=== PATIENT | male | born 1950 | race Hispanic/Latino ===

== ENCOUNTER 2018-04-20 19:29 | Observation (INO) | payer BC ==
[~2018-04-20 19:29] MED LIST: ISOVUE-370 76%-LOCM 1 ML ONE
[2018-04-20 20:23] LABS: #Eosinphils 0.1 thou/uL (0.0-0.7); #Lymphocytes 2.8 thou/uL (1.20-3.40); #Monocytes 1.4 thou/uL (0.11-0.59); #Neutrophils 11.9 thou/uL (1.40-6.50); %Basophils 0.2 % (0.0-1.0); %Eosinophils 0.7 % (0.0-10.0); %Lymphocytes 17.5 % (21.0-51.0); %Monocytes 8.7 % (0.0-10.0); Hemoglobin 13.4 g/dL (14.0-18.0); Mean Corpuscular HGB CONC 35.8 g/dL (32.0-36.0); Mean Corpuscular Hemoglobin 31.3 pg (27.0-31.0); Mean Corpuscular Volume 87.4 fL (78.0-98.0); Mean Platelet Volume 7.6 fL (7.4-10.4); Platelet Count 209 thou/uL (130-400); RBC Distribution Width 12.3 % (11.5-14.5); Red Blood Cell (RBC) Count 4.27 mill/uL (4.70-6.10); White Blood Cell (WBC) Count 16.3 thou/uL (4.8-10.8)
[2018-04-20 20:35] LABS: Bilirubin Negative (Negative); Blood, Urine Negative (Negative); Clarity CLEAR (Clear); Glucose, Urine (Dipstick) >=1000 mg/dL (Negative); Leukocyte Negative (Negative); Nitrite Negative (Negative); Protein, Urine (Dipstick) Negative (Neg-Trace); Specific Gravity, Urine 1.021 (1.002-1.036); Urobilinogen 0.2 mg/dL (0.2-1.0)
[2018-04-20 20:43] LABS: ALT (SGPT) 22 U/L (8-55); AST (SGOT) 17 U/L (5-34); Albumin 4.1 g/dL (3.4-4.8); Alkaline Phosphatase 147 U/L (40-150); Anion Gap 15 mmol/L (10-20); BUN (Urea Nitrogen) 25 mg/dL (8.4-25.7); Bilirubin, Total 0.9 mg/dL (0.2-1.2); Calc. Creatinine Clearance 0 mL/min (70-130); Calcium 9.2 mg/dL (7.8-10.44); Carbon Dioxide 22 mmol/L (23-31); Chloride 102 mmol/L (98-107); Estimated GFR-MDRD 77; Globulin 3.4 g/dL (2.4-3.5); Glucose 173 mg/dL (80-115); Protein, Total 7.5 g/dL (5.8-8.1); Sodium 135 mmol/L (136-145)
[2018-04-20] MEDS ORDERED: Morphine 4 MG/ML VIAL ONE (21:15)
--- NOTE | 2018-04-20 22:52 | CT ---
CT ABDOMEN WITH CONTRAST CT PELVIS WITH CONTRAST: DATE: 04/20/2018 TIME: 10:05 p.m. HISTORY: 67-year-old male with dysuria, rectal pain, and lower abdominal pain. COMPARISON: 02/10/2014 TECHNIQUE: IV injection of iodinated contrast media: Isovue. Oral contrast media: Not administered. FINDINGS: The prostate gland has heterogeneously slightly low attenuation, is enlarged (similar to prior CT), a nd indents the bladder base. The interface between the prostate and the bladder base is slightly jayden stinct on the current study. The urinary bladder is distended, more than on the previous CT. It has thin, normal black. There is a new finding of mild bilateral hydroureteronephrosis, probably due to the distended urinary bladder. The rectum is distended with stool, measuring approximately 7.7 x 7.7 cm in short axes, a s ignificant change since the previous CT. There is new finding of mild perirectal, presacral fat stran ding consistent with mild edema. Mural thickness of the distended rectum is approximately 3 mm, borde rline thickened. The junction between the sigmoid colon and rectum is narrow, and there is surrounding fat stranding. These are also new since the prior CT. Superior to that, there is moderate volume of stool throughou t the sigmoid, descending, and transverse colon. Cholecystectomy clips in the gallbladder fossa. Diffuse mild dilation of the biliary tree is due to t he status post cholecystectomy, similar to the previous CT. No solid or cystic hepatic lesion. Abdomi nal aorta, adrenals, pancreas, and spleen, are essentially normal. No small bowel dilation. No ascite s or pneumoperitoneum. IMPRESSION: 1. Evidence for fecal impaction of the rectum. Recommend clinical correlation to rule out the po ssibility of mild stercoral proctitis. 2. Narrowing of the junction between the rectum and sigmoid colon with surrounding fat stranding . This could represent proctitis, or stricture due to colon cancer. Colonoscopy or proctoscopy should be considered on an elective basis, after decompression of the rectum. 3. Mild bilateral hydroureteronephrosis due to distended urinary bladder. The urinary bladder di stention could be due to bladder outlet obstruction. 4. Enlarged prostate with low attenuation, raising the possibility of prostatitis. 5. Status post cholecystectomy. CHRISTINE Al POS: GABBY
[2018-04-21 02:34] VITALS: BMI 29.0
[2018-04-21] MEDS ORDERED: Morphine 4 MG/ML VIAL SLOW IVP PRN (02:44)
[2018-04-21] MEDS ORDERED: Ondansetron HCl/PF 4 MG/2 ML Vial IVP PRN (02:47)
[2018-04-21] MEDS ORDERED: Bisacodyl 5 MG TAB PO PRN (02:49)
[2018-04-21] MEDS ORDERED: Dicyclomine 10 MG CAP PO PRN (02:49)
[2018-04-21] MEDS ORDERED: Dextrose 50% Abboject 50 ML SYRINGE SLOW IVP PRN (03:03)
[2018-04-21] MEDS ORDERED: Dextrose 5% in Water 1,000 ML IV PRN (03:03)
[2018-04-21] MEDS: Acetaminophen 325 MG TAB PO PRN ×2 (03:35→18:31)
[2018-04-21] MEDS: Sodium Chloride 0.9% 1,000 ML IV SCH ×3 (03:36→23:34)
[2018-04-21 04:30] LABS: #Eosinphils 0.1 thou/uL (0.0-0.7); #Lymphocytes 1.8 thou/uL (1.20-3.40); #Monocytes 0.8 thou/uL (0.11-0.59); %Basophils 0.2 % (0.0-1.0); %Eosinophils 0.5 % (0.0-10.0); %Lymphocytes 18.6 % (21.0-51.0); %Monocytes 8.3 % (0.0-10.0); %Neutrophils 72.4 % (42.0-75.0); Hemoglobin 12.3 g/dL (14.0-18.0); Mean Corpuscular HGB CONC 36.3 g/dL (32.0-36.0); Mean Corpuscular Hemoglobin 31.7 pg (27.0-31.0); Mean Corpuscular Volume 87.3 fL (78.0-98.0); Mean Platelet Volume 7.9 fL (7.4-10.4); Platelet Count 183 thou/uL (130-400); RBC Distribution Width 12.3 % (11.5-14.5); Red Blood Cell (RBC) Count 3.87 mill/uL (4.70-6.10); White Blood Cell (WBC) Count 9.6 thou/uL (4.8-10.8)
[2018-04-21 04:41] LABS: Anion Gap 12 mmol/L (10-20); BUN (Urea Nitrogen) 20 mg/dL (8.4-25.7); Calc. Creatinine Clearance 102 mL/min (70-130); Calcium 8.4 mg/dL (7.8-10.44); Carbon Dioxide 20 mmol/L (23-31); Chloride 105 mmol/L (98-107); Estimated GFR-MDRD 90; Glucose 213 mg/dL (80-115); Potassium 3.6 mmol/L (3.5-5.1); Sodium 133 mmol/L (136-145)
--- NOTE | 2018-04-21 07:36 | HP ---
PRIMARY CARE PHYSICIAN: Dr. Stringer from [facility]. CODE STATUS: FULL CODE. TIME OF EVALUATION: 2:45 a.m. CHIEF COMPLAINT: "I cannot urinate or defecate." HISTORY OF PRESENT ILLNESS: This 67-year-old male patient with past medical history of diabetes, als o hypertension, came to the hospital after having 3 days of constipation and inability to urinate, sy mptoms have been severe, with severe pain, 10/10, no clear triggers, alleviating factors, patient rec eived Gonsales in ER and a large amount of urine was collected, CAT scan was done and showed possible pr octitis and also prostatitis. Physical exam done in the ER. The patient has severe pain during rect al examination. Possibilities for diagnosis were reported as a possible rectal stricture versus canc er. The patient had no fever or chills. REVIEW OF SYSTEMS: Constitutional: No fever or chills or generalized weakness. Respiratory: No co ugh, sputum production or shortness of breath. Cardiovascular: No chest pain, palpitation or shortn ess of breath. Gastrointestinal: No nausea, no vomiting. The patient has constipation and rectal p ain. 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 Genitourinary: The patient has urinary r etention, and lower abdominal pain. Extremities: No leg swelling. All other systems were reviewed and negative except for the findings mentioned above. PAST MEDICAL HISTORY: Positive for diabetes, hypertension as mentioned above, and hyperlipidemia. PAST SURGICAL HISTORY: Appendectomy, cholecystectomy. PSYCHIATRIC HISTORY: No previous psychiatric history. SOCIAL HISTORY: No alcohol, no smoking history. No drug use. FAMILY HISTORY: Noncontributory to current presentation. ALLERGIES: PENICILLIN. REPORTED MEDICATIONS: Atorvastatin, glipizide, Lyrica, duloxetine, dicyclomine. PHYSICAL EXAMINATION: VITAL SIGNS: On presentation, heart rate 62, respiratory rate was 21, oxygen saturation 99, temperat ure 97.5, blood pressure 125/74. GENERAL APPEARANCE: The patient is alert, oriented, not in any acute distress. HEAD AND EYES: Normal conjunctivae. Moist oral mucosa. Anicteric. NECK: No JVD. RESPIRATORY: Bilateral air entry. No rales or wheezing. Symmetric expansion. CARDIOVASCULAR: Normal rate, regular rhythm. No murmurs, no gallop. No edema. ABDOMEN: Soft, tender mostly lower abdomen and also in right flank and back. MUSCULOSKELETAL: Baseline range of motion and strength. No tenderness. SKIN: Warm and intact. No pallor, no rash, no redness. Peripheral pulses are present. Capillary r efill seems to be intact. NEUROLOGIC: Baseline sensorium. No evidence of any new focal weakness. Baseline speech. Cranial n erves seems to be intact. PSYCHIATRIC: The patient is in good mood. No anxiety, oriented, optimal judgment. DIAGNOSTIC DATA: CAT scan was done and review evidence of fecal impaction in the rectum. Recommende d clinical correlation to rule out the possibility of mild . Narrowing of the junction between the rectum and sigmoid colon with surrounding fat stranding. This could represent proctitis or stric ture due to colon cancer. Colonoscopy or proctoscopy to be considered on an elective basis after dec ompression of the rectum, mild bilateral hydroureteronephrosis due to distended urinary bladder. The urinary bladder distention could be due to bladder outlet obstruction, enlarged prostate with low at tenuation raising the possibility of prostatitis, status post cholecystectomy. LABORATORY DATA: Labs were reviewed. White count 16.3, hemoglobin 13.4, MCV 87, platelet count 209. Sodium 135, potassium 4.0, chloride 102, carbon dioxide 32, anion gap 15, BUN 25, creatinine 0.9, G FR 77, glucose 173. Lactic acid was 2.8. Initially a second was 1.0. Calcium 9.2. LFTs were cindy l. Urine was done and was negative for infection. There is some trace ketones and glucose in the ur ine. ASSESSMENT AND PLAN: The patient will be placed in the hospital with following medical problems. 1. Urinary tract obstruction or infected with prostatitis as reported in the CAT scan. We will cont inue antibiotics started in the ER, a Gonsales catheter was placed with significant amount of urine was drained, follow cultures, Urology consultation in the morning. 2. Fecal impaction reported in CAT scan with some possible rectal stricture versus proctitis. We wi ll need GI evaluation for any further need for procedures, now or electively. 3. Severe pain, patient receiving opiate medications for optimal control. Basically, the patient fisher d a recent complication from treatment. 4. Deep venous thrombosis prophylaxis. 5. Uncontrolled diabetes with blood sugar of 173, hyperglycemia, we will place the patient on slidin g scale for optimal control. 6. Lactic acidosis, on presentation 2.8, will be secondary to prostatitis or due to proctitis, the p atient already is on antibiotics, we will monitor and we will treat accordingly. 7. Hyponatremia with sodium 135. This is minimal, the patient, we will monitor, we will adjus t treatment as needed. 8. Leukocytosis with white count of 16.3, this could be likely secondary to underlying prostatitis v ersus proctitis, patient already on antibiotics. We will monitor.
[2018-04-21] MEDS ORDERED: Naproxen 500 MG TAB PO SCH (08:00)
[2018-04-21] MEDS ORDERED: Prevnar 13-Val Conj/PF 0.5 ML SYRINGE IM ONE (09:00)
[2018-04-21] MEDS: Pregabalin 75 MG CAP PO SCH ×2 (10:06→20:50)
[2018-04-21] MEDS: Atorvastatin Calcium 10 MG TAB PO SCH (10:06)
[2018-04-21] MEDS: DULoxetine 60 MG CAP PO SCH ×2 (10:06→20:50)
[2018-04-21] MEDS ORDERED: Bisacodyl 5 MG TAB PO SCH (11:00)
[2018-04-21 12:32] LABS: Hemoglobin A1c 9.3 % (4.0-6.0)
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
--- NOTE | 2018-04-21 15:44 | CON ---
DATE OF CONSULTATION: 04/21/2018 HISTORY OF PRESENT ILLNESS: The patient is a 67-year-old gentleman who presented with const ipation, unable to urinate and having some severe rectal pain. Patient underwent a colonoscopy at [facility] [place] approximately 2 years ago and it was normal. He reports he has not had good bowel move ment in 3 days. PAST MEDICAL HISTORY: Includes diabetes, hypertension, hyperlipidemia, diabetes mellitus. PAST SURGICAL HISTORY: Includes appendectomy, cholecystectomy. SOCIAL HISTORY: Does not smoke or drink. FAMILY HISTORY: Negative for GI or liver disease. ALLERGIES: PENICILLIN. HOME MEDICATIONS: Metformin 1000 mg p.o. b.i.d., glipizide 10 mg p.o. b.i.d., Lyrica 150 mg p.o. b.i .d., Actos 30 mg p.o. daily, Naprosyn 500 mg p.o. b.i.d., dicyclomine 10 mg p.o. t.i.d. p.r.n., desip ramine 50 mg p.o. at bedtime, Cymbalta 60 mg p.o. b.i.d., Dulcolax p.r.n., atorvastatin 10 mg p.o. q. a.m. REVIEW OF SYSTEMS: Constitutional: No fever or chills, no weight loss. Eyes: No blurred vision or double vision. ENT: No sore throat or earaches. Cardiovascular: No chest pain or palpitation. P ulmonary: No shortness of breath, cough, or wheezing. Gastrointestinal: See above. Genitourinary: No hematuria or dysuria. Musculoskeletal: No joint pain or muscle weakness. Skin: No rashes. N eurologic: No numbness or seizure activity. PHYSICAL EXAMINATION: GENERAL: Shows a well-developed, well-nourished male, in no acute distress. VITAL SIGNS: Temperature 97.7, pulse 59, respiratory rate 12, blood pressure 98/56. HEENT: Unremarkable. NECK: Supple. CHEST: Clear. CARDIOVASCULAR: Regular rate and rhythm. ABDOMEN: Soft, tender in the lower quadrant without rebound or guarding. Bowel sounds are present. RECTAL: Shows a large fecal impaction. Attempt at removing, whereas slightly successful; however, t he patient had significant pain and had to be stopped. Most of the impaction was broken up. EXTREMITIES: Normal. NEUROLOGIC: Nonfocal. LABORATORY: Shows a white blood cell count 9.6, hemoglobin 12.3, hematocrit 33.8. Sodium 133, CO2 o f 20, glucose 213. ASSESSMENT: 1. Fecal impaction. 2. Urinary retention secondary to fecal impaction. 3. Diabetes mellitus. RECOMMENDATIONS: 1. GoLYTELY prep. 2. Recheck rectal exam tomorrow and see if there is any further residual impaction.
[2018-04-21] MEDS: Insulin Regular 300 UNITS/3 ML VIAL SC PRN ×2 (17:11→22:10)
[2018-04-21] MEDS ORDERED: GoLYTELY 4,000 ml Bottle PO SCH (18:00)
[2018-04-21] MEDS ORDERED: DESIPRAMINE HCL 50 MG PO SCH (21:00)
[2018-04-22] MEDS: Insulin Regular 300 UNITS/3 ML VIAL SC PRN ×2 (05:38→12:14)
[2018-04-22] MEDS ORDERED: Dutasteride 0.5 MG CAP PO SCH (09:00)
[2018-04-22] MEDS ORDERED: Tamsulosin HCl 0.4 MG CAP PO SCH (09:00)
[2018-04-22] MEDS: Pregabalin 75 MG CAP PO SCH (09:30)
[2018-04-22] MEDS: DULoxetine 60 MG CAP PO SCH (09:30)
[2018-04-22] MEDS: Atorvastatin Calcium 10 MG TAB PO SCH (09:31)
--- NOTE | 2018-04-22 10:09 | PRG ---
DATE OF SERVICE: 04/22/2018 SUBJECTIVE: The patient feels much better, has his appetite back, has good bowel sounds. He had a large bowel movement, so large that per nursing staff, he clogged the hospital toilet. PHYSICAL EXAMINATION: VITAL SIGNS: Stable. He is afebrile. GENITOURINARY: Urine output is clear, 1525. Has had 4 bowel movements. ABDOMEN: Soft, nontender, nondistended. Digital rectal exam empty rectal vault LABORATORY DATA: Urine culture is negative. Hemoglobin A1c on this admission is 9.3. IMPRESSION AND PLAN: Mr. Otoole is a 67-year-old male with history of diabetes , poorly controlled, noncompliant with diet regimen, admitted for fecal impaction, urinary retention, post-void residual unknown; however, per ER staff , large amounts of residual obtained with initial Gonsales catheter placement. The patient does not have evidence of acute bacterial prostatitis, urinary retention is multifactorial, i.e., component of benign prostatic hyperplasia, likely component of myogenic component due to poorly controlled diabetes as well as significant fecal impaction. With bowel regimen provided by Dr. Dinh, he has had large bowel movements. I did repeat a digital rectal exam today, which demonstrates an empty rectal vault. The patient may be discharged when okay with primary service and GI. Strict control of his diabetes is advised. If the patient is discharged today, he will need to be discharged with an indwelling Gonsales catheter to a leg bag, please discharge with tamsulosin and Avodart. fui appt in chart for void trial As there was significant postvoid residual history, bladder rest with indwelling Gonsales catheter advised for a voiding trial at a later date. No antibiotics are necessary from perspective. MTDD
[2018-04-22 11:52] VITALS: BP 120/64; TEMP 98.2
[2018-04-22] MEDS: Sodium Chloride 0.9% 1,000 ML IV SCH (13:16)
--- NOTE | 2018-04-22 14:02 | PRG ---
DATE OF SERVICE: 04/22/2018 SUBJECTIVE: The patient had a large amount of stools after his GoLYTELY. Dr. Villalobos did a rect al exam and showed no residual stool. He is feeling good, eating well. OBJECTIVE: VITAL SIGNS: Temperature 98.2, pulse 55, respiratory rate 16, blood pressure 120/64. CHEST: Clear. CARDIOVASCULAR: Regular rate and rhythm. ABDOMEN: Benign. RECTAL: Not repeated. EXTREMITIES: Normal. LABORATORY DATA: Shows glucose 172. ASSESSMENT: Fecal impaction -- resolved. RECOMMENDATIONS: 1. Daily MiraLax long-term. 2. We will follow at a distance.
--- NOTE | 2018-04-22 18:49 | DIS ---
DATE OF ADMISSION: 04/20/2018 DATE OF DISCHARGE: 04/22/2018 DISCHARGE DIAGNOSES: 1. Urinary retention. 2. Severe constipation. 3. Abdominal pain. HOSPITAL COURSE: The patient is a 57-year-old male with history of diabetes and hypertension who pre sented to the hospital with complaints of severe lower abdominal pain and urinary retention. Patient at this time underwent a CT abdomen and pelvis, which indicated evidence of fecal impaction of the r ectum. Recommended clinical correlation. Also narrowing of the junction between the rectum and the sigmoid colon. Also had mild bilateral hydronephrosis. The patient at this time was put on IV antib iotics for possible prostatitis and Urology and GI was consulted. Patient had a Gonsales catheter place d. Urine culture was negative. The patient will follow up with Urology as outpatient for removal of the catheter. He was seen by GI, also underwent GoLYTELY and had a significant amount of bowel move ment. Patient currently feels stable and will follow up with PCP as outpatient. He recommended the patient to increase his fiber in his diet. HOME MEDICATIONS: He is going to go home with metformin 1000 b.i.d., glipizide 10 b.i.d., Lyrica 150 b.i.d., Actos 50 mg daily, desipramine 50 mg at bedtime, Cymbalta 60 mg b.i.d., atorvastatin 10 mg d aily, Flomax 0.4 daily, MiraLax 17 grams daily, and Avodart 5 mg daily. PHYSICAL EXAMINATION: VITAL SIGNS: 98.4, 53, 16, 95, 120/64. GENERAL: He is awake, alert, oriented x3, does not appear in any distress. CARDIOVASCULAR: S1, S2 present. No murmurs, rubs or gallops. ABDOMEN: Soft, nontender. Bowel sounds are present x2. EXTREMITIES: No edema. Pedal pulses are present x2. DISCHARGE INSTRUCTIONS: Patient will be discharged home. He will follow up with PCP and also with Gómez gibson as outpatient.
== END 2018-04-22 16:20 | disposition home or self-care (01) ==
LOC: ERS 19:29 → 2SW 23:57
PROVIDERS: ADMIT Hospitalist; ATTEND Hospitalist
DX: K56.41 Fecal impaction (principal); R33.8 Other retention of urine; E11.65 Type 2 diabetes mellitus with hyperglycemia; E78.5 Hyperlipidemia, unspecified; I10 Essential (primary) hypertension; E87.2 Acidosis; E87.1 Hypo-osmolality and hyponatremia; Z79.84 Long term (current) use of oral hypoglycemic drugs; Z79.899 Other long term (current) drug therapy; Z88.0 Allergy status to penicillin; Z91.11 Patient's noncompliance with dietary regimen
CPT/HCPCS: 36415; 36416; 51702; 74177; 80048; 80053; 81003; 83036; 83605; 83690; 85025; 87086; 90471; 90670; 96361; 96365; 96366; 96375; 96376; G0009; G0378; J1815; J1956; J2270

== ENCOUNTER 2018-12-26 | Outpatient (CLI) | payer BC, MEDICARE ==
[2018-12-26 10:10] LABS: #Basophils 0.1 thou/uL (0.0-0.2); #Eosinphils 0.1 thou/uL (0.0-0.7); #Lymphocytes 2.6 thou/uL (1.20-3.40); #Monocytes 0.6 thou/uL (0.11-0.59); #Neutrophils 3.8 thou/uL (1.40-6.50); %Basophils 1.4 % (0.0-1.0); %Eosinophils 1.3 % (0.0-10.0); %Monocytes 8.7 % (0.0-10.0); %Neutrophils 52.6 % (42.0-75.0); Hemoglobin 14.1 g/dL (14.0-18.0); Mean Corpuscular HGB CONC 34.6 g/dL (32.0-36.0); Mean Corpuscular Hemoglobin 30.8 pg (27.0-31.0); Mean Platelet Volume 8.4 fL (7.4-10.4); Platelet Count 199 thou/uL (130-400); RBC Distribution Width 12.4 % (11.5-14.5); Red Blood Cell (RBC) Count 4.57 mill/uL (4.70-6.10); White Blood Cell (WBC) Count 7.2 thou/uL (4.8-10.8)
[2018-12-26 10:16] LABS: Bacteria/HPF None Seen HPF (None Seen); Hyaline Casts/LPF NONE SEEN LPF (0-3 Hyaline); INR-International Normal Ratio 1.1; Prothrombin Time 13.8 SEC (12.0-14.7); RBC/HPF None Seen HPF (0-3); Squamous Epithelial 0-3 HPF (0-3); WBC/HPF None Seen HPF (0-3)
[2018-12-26 10:25] LABS: Anion Gap 13 mmol/L (10-20); BUN (Urea Nitrogen) 25 mg/dL (8.4-25.7); Calc. Creatinine Clearance 0 mL/min (70-130); Calcium 9.9 mg/dL (7.8-10.44); Carbon Dioxide 25 mmol/L (23-31); Chloride 104 mmol/L (98-107); Estimated GFR-MDRD 75; Glucose 224 mg/dL (80-115); Potassium 4.5 mmol/L (3.5-5.1); Sodium 137 mmol/L (136-145)
== END 2018-12-26 00:01 | disposition home or self-care (01) ==
LOC: LABBT
PROVIDERS: ATTEND Orthopaedic Surgery
DX: Z01.818 Encounter for other preprocedural examination (principal); M17.12 Unilateral primary osteoarthritis, left knee
CPT/HCPCS: 80048; 81015; 85025; 85610; 87081; 93005; 93010

== ENCOUNTER 2018-12-30 05:34 | Day surgery (SDC) | payer BC, MEDICARE ==
--- NOTE | 2018-12-26 08:31 | HP ---
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 He has had progressive pain despite rest, restriction of activities, anti-inflammatory medications, and cortisone injections. He has had no recent injury, but has had previous arthroscopic surgery of his right knee approximately 30 years ago. The pain is now interfering with day-to-day activities including walking, getting dressed, and sleeping. PAST MEDICAL HISTORY: The patient has history of hypertension, diabetes, hyperlipidemia, and enlarged prostate. CURRENT MEDICATIONS: Include; 1. Naproxen. 2. MiraLAX. 3. Cymbalta. 4. Glipizide. 5. Lipitor. 6. Metformin. 7. Actos. 8. Avodart. 9. Flomax. ALLERGIES: HE IS ALLERGIC TO PENICILLIN, WHICH CAUSES HIVES. FAMILY HISTORY: Otherwise, unremarkable. SOCIAL HISTORY: Otherwise, unremarkable. REVIEW OF SYSTEMS: Otherwise, unremarkable. PHYSICAL EXAMINATION: GENERAL: Reveals a healthy male. HEENT: Unremarkable. NECK: Supple. CHEST: Clear. HEART: Regular rate and rhythm. ABDOMEN: Soft and nontender. RECTAL: Deferred. GENITAL: Deferred. EXTREMITIES: Pertinent findings related to his knees, there is moderate varus deformity bilaterally, left slightly greater than right. On the right, there are healed arthroscopy puncture wounds. There is tenderness and crepitus over the medial joint line bilaterally, left greater than right. Range of motion is 5 to 95 degrees bilaterally. There is no instability. Neurovascular exam is intact. Distal pulses are 1+. IMAGING DATA: X-rays of both knees reveal [id number] collapse medially. IMPRESSION: 1. Degenerative arthritis of both knees, left symptomatic more than right. 2. History of hypertension. 3. History of diabetes. PLAN: Left total knee replacement. He may eventually require staged right total knee replacement. The nature of the surgery, length of recovery, and potential complications such as infection, loss of motion, incomplete relief, thromboembolic phenomena, delayed wound healing, possible transfusion, and need for revision have been discussed in detail. Job ID: [id number]
[2018-12-30] MEDS ORDERED: Vancomycin HCl 1.5 GM in Sodium Chloride 0.9% 250 ML 300 ML IVPB SCH ×2 (06:15→18:00)
[2018-12-30] MEDS ORDERED: Tranexamic Acid 1,000 MG/10 ML VIAL ONE ×2 (06:25→09:20)
[2018-12-30] MEDS ORDERED: Sodium Chloride 0.9% 100 ML ONE (06:25)
[2018-12-30] MEDS ORDERED: Levofloxacin 500 mg/D5W 100 ml Premix Bag ONE (06:25)
[2018-12-30] MEDS ORDERED: Midazolam HCl 2 mg/2 ml Vial ONE (06:31)
[2018-12-30] MEDS ORDERED: Fentanyl 100 MCG/2 ML VIAL ONE ×2 (06:31→07:50)
[2018-12-30] MEDS ORDERED: Lidocaine 1% (PF) 30 ML VIAL ONE (06:41)
[2018-12-30] MEDS ORDERED: traMADol HCl 50 MG TAB PO PRN ×3 (06:59→10:20)
[2018-12-30] MEDS ORDERED: Zolpidem Tartrate 5 MG TAB PO PRN ×2 (06:59→10:20)
[2018-12-30] MEDS ORDERED: Promethazine HCl 25 MG/ML VIAL IM PRN ×2 (06:59→09:07)
[2018-12-30] MEDS ORDERED: Ondansetron PF 4 MG/2 ML Vial IVP PRN ×2 (06:59→10:20)
[2018-12-30] MEDS ORDERED: HYDROcodone/Acetaminophen 10/325 mg Tablet PO PRN ×3 (06:59→10:20)
[2018-12-30] MEDS ORDERED: Fentanyl 100 MCG/2 ML VIAL IV PRN (07:00)
[2018-12-30] MEDS ORDERED: Ropivacaine HCl/PF 250 ML in Premix Bag 1 BAG NERVE BLCK SCH (07:01)
[2018-12-30] MEDS ORDERED: Bupivacaine/Epinephrine 0.25% 30 ML VIAL ONE (07:53)
[2018-12-30] MEDS ORDERED: Ropivacaine 0.2% HCl/PF (40 MG/20 ML VIAL) ONE (09:04)
[2018-12-30] MEDS ORDERED: Ropivacaine 0.5% HCl/PF (150 MG/30 ML VIAL) ONE (09:04)
[2018-12-30] MEDS ORDERED: Meperidine HCl/PF 25 MG/ML VIAL SLOW IVP PRN (09:07)
[2018-12-30] MEDS ORDERED: Promethazine HCl 25 MG/ML VIAL SLOW IVP PRN ×2 (09:07→10:20)
[2018-12-30] MEDS ORDERED: Ondansetron HCl/PF 4 MG/2 ML Vial IVP PRN (09:07)
[2018-12-30] MEDS ORDERED: Ketorolac Tromethamine 30 MG/ML VIAL IVP PRN (09:07)
[2018-12-30] MEDS ORDERED: Morphine Sulfate 2 MG/ML SYRINGE SLOW IVP PRN (09:07)
[2018-12-30] MEDS ORDERED: PACU-Morphine 4MG/ML VIAL SLOW IVP PRN (09:07)
[2018-12-30] MEDS ORDERED: HYDROmorphone 2 MG/ML VIAL SLOW IVP PRN (09:07)
[2018-12-30] MEDS ORDERED: ePHEDrine 50 MG/ML VIAL ONE (09:08)
[2018-12-30] MEDS ORDERED: PROPOFOL 200 MG/20 ML VIAL ONE (09:08)
[2018-12-30] MEDS ORDERED: Glycopyrrolate 0.2 MG/ML 5 ML SYRINGE ONE (09:08)
[2018-12-30] MEDS ORDERED: Lidocaine 1% PF 5 ML VIAL ONE (09:08)
[2018-12-30] MEDS ORDERED: Ondansetron PF 4 MG/2 ML Vial ONE (09:08)
[2018-12-30] MEDS ORDERED: Tranexamic Acid 1,000 MG in Sodium Chloride 0.9% 100 ML IVPB SCH ×2 (09:15→10:20)
--- NOTE | 2018-12-30 10:12 | RAD ---
LEFT KNEE TWO VIEWS: HISTORY: Recent total knee arthroplasty. FINDINGS/IMPRESSION: Recent total knee arthroplasty changes without evidence for dislocation or periprosthetic fracture. POS: TPC
[2018-12-30] MEDS ORDERED: Multivitamin W/ Minerals 1 TAB PO SCH ×2 (10:20→11:00)
[2018-12-30] MEDS ORDERED: Ferrous Gluconate 324 MG TAB PO SCH ×2 (10:20→11:00)
[2018-12-30] MEDS ORDERED: Aspirin 81 mg Enteric Coated Tablet PO SCH ×2 (10:20→11:00)
[2018-12-30] MEDS ORDERED: diphenhydrAMINE 25 MG CAP PO PRN (10:20)
[2018-12-30] MEDS ORDERED: Senokot S 8.6-50 MG TAB PO SCH ×2 (10:20→11:00)
[2018-12-30] MEDS ORDERED: Fentanyl 100 MCG/2 ML VIAL SLOW IVP PRN ×2 (10:20)
[2018-12-30] MEDS ORDERED: Acetaminophen 325 MG TAB PO PRN (10:20)
[2018-12-30] MEDS ORDERED: Dextrose 50% Abboject 50 ML SYRINGE SLOW IVP PRN (10:33)
[2018-12-30] MEDS ORDERED: Dextrose 5% in Water 1,000 ML IV PRN (10:33)
[2018-12-30 10:38] VITALS: BMI 31.3
[2018-12-30] MEDS ORDERED: Prevnar 13-Val Conj/PF 0.5 ML SYRINGE IM ONE (11:00)
[2018-12-30] MEDS: Sodium Chloride 0.9% 1,000 ML IV SCH ×2 (11:24→17:54)
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
[2018-12-30] MEDS: Ketorolac Tromethamine 30 MG/ML VIAL IVP SCH ×3 (12:00→23:10)
[2018-12-30] MEDS ORDERED: Ketorolac Tromethamine 30 MG/ML VIAL IVP SCH (12:00)
--- NOTE | 2018-12-30 16:14 | OP ---
DATE OF PROCEDURE: 12/30/2018 ORACLE ARCHITECT: Inga Epstein PA-C ANESTHESIA: General plus adductor canal and sciatic nerve blocks. PREOPERATIVE DIAGNOSIS: Degenerative arthritis, left knee. POSTOPERATIVE DIAGNOSIS: Degenerative arthritis, left knee. PROCEDURES PERFORMED: Left total knee replacement with computer-assisted navigation with cemented [place] triathlon components (#5 femoral component, #5 primary tibial base plate with 9 mm CS plastic insert, and all plastic A35 patellar component). DESCRIPTION OF PROCEDURE: After satisfactory anesthesia was induced in supine position, sequential compression device was placed on the nonoperative leg throughout the procedure. The left leg was then prepped and draped in routine sterile fashion. The left leg was elevated and exsanguinated with an Esmarch bandage and the tourniquet inflated to 250 mmHg. A gently curved medial parapatellar incision was made, carried down through the subcutaneous tissues and bleeding points controlled with Bovie cautery. Medial parapatellar arthrotomy was performed, and patella dislocated laterally. Portions of the fat pad were excised for exposure. There was marked degenerative arthritis of the knee of all compartments, especially medially with large areas of exposed bone. Meniscal remnants and osteophytes were removed. Using the [employer] LS15 pinless navigation system and the appropriate guides, the distal femoral and proximal tibial articular surfaces were excised with an oscillating saw to accept the trial components. It was felt that #5 femoral component, #5 tibial base plate with 9 mm CS plastic insert gave appropriate size, fit, stability, and correction of the preoperative deformity. The patellar articular surface was excised to accept an all plastic A35 patellar component. There was good range of motion and good patellar tracking. The trial components were removed. The knee was copiously irrigated with pulsatile lavage. The bony surfaces were thoroughly cleaned and dried. The permanent components were then cemented in a single stage using one package of cement premixed with 1 g of tobramycin powder. Excess cement was removed. There was again good fit and stability of the components. The knee was again copiously irrigated with pulsatile lavage. The medial retinaculum and quadriceps mechanism were closed with interrupted #2 Vicryl and a running #2 Quill. Subcutaneous tissues were closed with a running 0 Quill suture, and the skin closed with running subcuticular 3-0 Monoderm and SurgiSeal skin adhesive. A sterile bulky compressive dressing was applied. The tourniquet deflated after 79 minutes. The foot promptly pinked up, and sequential compression devices were applied to his operated leg. He was awakened, taken to recovery room in stable condition. There were no apparent intraoperative complications. The estimated blood loss was less than 100 mL. Job ID: [id number]
[2018-12-30] MEDS: HYDROcodone/Acetaminophen 10/325 mg Tablet PO PRN (18:01)
[2018-12-30] MEDS: Aspirin 81 mg Enteric Coated Tablet PO SCH (20:52)
[2018-12-30] MEDS: Ferrous Gluconate 324 MG TAB PO SCH (20:52)
[2018-12-30] MEDS: Senokot S 8.6-50 MG TAB PO SCH (20:53)
[2018-12-30] MEDS: HumaLOG 300 UNITS/3 ML VIAL SC PRN (20:55)
[2018-12-31] MEDS: HYDROcodone/Acetaminophen 10/325 mg Tablet PO PRN ×5 (04:01→20:02)
[2018-12-31 04:43] LABS: Hemoglobin 11.5 g/dL (14.0-18.0); Mean Corpuscular HGB CONC 34.4 g/dL (32.0-36.0); Mean Platelet Volume 8.3 fL (7.4-10.4); Platelet Count 153 thou/uL (130-400); RBC Distribution Width 12.5 % (11.5-14.5); White Blood Cell (WBC) Count 8.6 thou/uL (4.8-10.8)
[2018-12-31] MEDS: Ketorolac Tromethamine 30 MG/ML VIAL IVP SCH ×4 (05:24→23:38)
[2018-12-31] MEDS: Sodium Chloride 0.9% 1,000 ML IV SCH ×2 (05:31→15:09)
[2018-12-31] MEDS: HumaLOG 300 UNITS/3 ML VIAL SC PRN ×4 (05:56→21:14)
[2018-12-31] MEDS: Ferrous Gluconate 324 MG TAB PO SCH ×2 (08:00→19:59)
[2018-12-31] MEDS: Senokot S 8.6-50 MG TAB PO SCH ×2 (08:00→19:59)
[2018-12-31] MEDS: Multivitamin W/ Minerals 1 TAB PO SCH (08:00)
[2018-12-31] MEDS: Aspirin 81 mg Enteric Coated Tablet PO SCH ×2 (08:00→19:59)
--- NOTE | 2018-12-31 13:18 | PRG ---
DATE OF SERVICE: 12/31/2018 SUBJECTIVE: William is a 68-year-old male, who is postop day 1 from a left total knee arthroplasty. He is feeling relatively well today. He has no complaints of pain. He is comfortable and tolerating it very well. OBJECTIVE: VITAL SIGNS: Temperature 98.6, pulse 59, respiratory rate 18 and nonlabored, and blood pressure is 125/67. GENERAL: He is alert and oriented to person, place, time and situation, grossly nonfocal and appropriate response with examiner. SKIN: Incision is clean and closed without erythema. EXTREMITIES: He is neurovascularly intact in both lower extremities. LABORATORY DATA: Hemoglobin and hematocrit of 11.5 and 33.1. IMPRESSION: 1. This is a 68-year-old male, postop day 1 left total knee arthroplasty, doing well. 2. Postoperative asymptomatic anemia. Continue current care. Discharge tomorrow. Job ID: [id number]
--- NOTE | 2018-12-31 15:39 | PDOC.PN ---
- Subjective Encounter Start Date: 12/31/18 Encounter Start Time: 15:37 Subjective: feels well. no new complaints -: preston snot take meds for diabetes at home as it gave him headache -: no CP/SOB.knee pain controlled post -op - Objective MAR Reviewed: Yes Vital Signs & Weight: Vital Signs (12 hours) Temp Pulse Resp BP BP Pulse Ox 12/31/18 15:05 98.6 F 56 L 18 127/68 93 L 12/31/18 12:51 98.4 F 53 L 18 110/56 L 92 L 12/31/18 07:58 94 L 12/31/18 07:44 98.6 F 59 L 18 125/67 94 L 12/31/18 04:00 99 F 57 L 16 115/69 94 L Weight Admit Weight 200 lb Weight 200 lb I&O: 12/30/18 12/31/18 01/01/19 06:59 06:59 06:59 Intake Total 2880 587 Output Total 1700 Balance 1180 587 Result Diagrams: 12/31/18 04:05 Additional Labs: Accuchecks 12/31/18 12/31/18 12/31/18 15:07 12:58 05:09 POC Glucose 199 H 247 H 182 H 12/30/18 12/30/18 12/30/18 20:17 15:28 06:31 POC Glucose 204 H 244 H 197 H Phys Exam - Physical Examination Constitutional: NAD sitting up in chair HEENT: PERRLA, moist MMs, sclera anicteric, oral pharynx no lesions Neck: no nodes, no JVD, supple, full ROM Respiratory: no wheezing, no rales, no rhonchi, clear to auscultation bilateral Cardiovascular: RRR, no significant murmur Gastrointestinal: soft, non-tender, no distention, positive bowel sounds Musculoskeletal: no edema, pulses present Neurological: non-focal, normal sensation, moves all 4 limbs Psychiatric: normal affect, A&O x 3 Skin: no rash Dx/Plan (1) DM2 (diabetes mellitus, type 2) Status: Chronic Qualifiers: Diabetes mellitus manager intermediate insulin use: without manager intermediate use Comment: will star metformin. check HbA1c (2) BPH (benign prostatic hyperplasia) Code(s): N40.0 - BENIGN PROSTATIC HYPERPLASIA WITHOUT LOWER URINRY TRACT SYMP Status: Chronic (3) HLD (hyperlipidemia) Code(s): E78.5 - HYPERLIPIDEMIA, UNSPECIFIED Status: Chronic (4) S/P total knee arthroplasty Code(s): Z96.659 - PRESENCE OF UNSPECIFIED ARTIFICIAL KNEE JOINT Status: Acute Qualifiers: Laterality: left Qualified Code(s): Z96.652 - Presence of left artificial knee joint - Plan PT/OT, incentive spirometry, DVT proph w/SCDs start metformin and monitor for side effects -: educated at length about need for Blood sugar control & diabetic diet -: am labs -: IM team will follow. ASA BID for DVT prophylaxis -: HD stable * . Review of Systems - Review of Systems Constitutional: negative: fever, chills, sweats, weakness, malaise, other ENT: negative: Ear Pain, Ear Discharge, Nose Pain, Nose Discharge, Nose Congestion, Mouth Pain, Mouth Swelling, Throat Pain, Throat Swelling, Other Respiratory: negative: Cough, Dry, Shortness of Breath, Hemoptysis, SOB with Excertion, Pleuritic Pain, Sputum, Wheezing Cardiovascular: negative: chest pain, palpitations, orthopnea, paroxysmal nocturnal dyspnea, edema, light headedness, other Gastrointestinal: negative: Nausea, Vomiting, Abdominal Pain, Diarrhea, Constipation, Melena, Hematochezia, Other Genitourinary: negative: Dysuria, Frequency, Incontinence, Hematuria, Retention , Other Musculoskeletal: negative: Neck Pain, Shoulder Pain, Arm Pain, Back Pain, Hand Pain, Leg Pain, Foot Pain, Other Skin: negative: Rash, Lesions, [place], Bruising, Other Neurological: negative: Weakness, Numbness, Incoordination, Change in Speech, Confusion, Seizures, Other - Medications/Allergies Allergies/Adverse Reactions: Allergies Allergy/AdvReac Type Severity Reaction Status Date / Time Penicillins Allergy Unknown Verified 12/26/18 12:17 Medications: Current Medications Acetaminophen (Tylenol) 650 mg PO Q4H PRN PRN Reason: Headache/Fever or Pain Hydrocodone Bitart/Acetaminophen ([place] 10/325) 1 tab PO Q4H PRN PRN Reason: Pain (1-3) Hydrocodone Bitart/Acetaminophen ([place] 10/325) 2 tab PO Q4H PRN PRN Reason: PAIN (4-6) Last Admin: 12/31/18 11:28 Dose: 2 tab Aspirin (Ecotrin) 81 mg PO BID [facility] Last Admin: 12/31/18 08:00 Dose: 81 mg Dextrose/Water (Dextrose 50%) 25 gm SLOW IVP PRN PRN PRN Reason: Hypoglycemia Diphenhydramine HCl (Benadryl) 25 mg PO Q6H PRN PRN Reason: Itching Fentanyl (Sublimaze) 50 mcg IV Q1H PRN PRN Reason: BREAKTHROUGH PAIN Ferrous Gluconate (Fergon) 324 mg PO BID [facility] Last Admin: 12/31/18 08:00 Dose: 324 mg Glucagon (Glucagon) 1 mg IM PRN PRN PRN Reason: Hypoglycemia Ropivacaine 250 ml/ Device 250 mls @ 0 mls/hr NERVE BLCK INF [facility] Last Admin: 12/31/18 09:24 Dose: 250 mls Sodium Chloride (Normal Saline 0.9%) 1,000 mls @ 100 mls/hr IV .Q10H [facility] Last Admin: 12/31/18 15:09 Dose: Not Given Dextrose/Water (D5w) 1,000 mls @ 0 mls/hr IV .Q0M PRN PRN Reason: Hypoglycemia Insulin Human Lispro (Humalog) 0 units SC .MILD SLIDING SCALE PRN PRN Reason: Mild Correctional Scale Last Admin: 12/31/18 13:44 Dose: 3 unit Iron/Minerals/Multivitamins (Theragran M) 1 tab PO DAILY [facility] Last Admin: 12/31/18 08:00 Dose: 1 tab Ketorolac Tromethamine (Toradol) 15 mg IVP Q6HR [facility] Stop: 01/01/19 06:01 Last Admin: 12/31/18 11:27 Dose: 15 mg Ondansetron HCl (Zofran) 4 mg IVP Q6H PRN PRN Reason: Nausea/Vomiting Promethazine HCl (Phenergan) 12.5 mg IM Q4H PRN PRN Reason: Nausea Promethazine HCl (Phenergan) 12.5 mg SLOW IVP Q4H PRN PRN Reason: Nausea/Vomiting Senna/Docusate Sodium (Senokot S) 2 tab PO BID [facility] Last Admin: 12/31/18 08:00 Dose: 2 tab Sodium Chloride (Flush - Normal Saline) 10 ml IVF Q12HR [facility] Last Admin: 12/31/18 08:01 Dose: 10 ml Sodium Chloride (Flush - Normal Saline) 10 ml IVF PRN PRN PRN Reason: Saline Flush Tramadol HCl (Ultram) 50 mg PO Q6H PRN PRN Reason: Mild Pain (1-3) Tramadol HCl (Ultram) 100 mg PO Q6H PRN PRN Reason: Moderate Pain 4-6 Zolpidem Tartrate (Ambien) 5 mg PO HSPRN PRN PRN Reason: Insomnia Zolpidem Tartrate (Ambien) 5 mg PO HSPRN PRN PRN Reason: Insomnia
[2018-12-31] MEDS ORDERED: metFORMIN XR 500 MG TAB PO SCH (17:00)
[2019-01-01] MEDS: Ketorolac Tromethamine 30 MG/ML VIAL IVP SCH (05:12)
[2019-01-01] MEDS: Sodium Chloride 0.9% 1,000 ML IV SCH ×2 (05:16→07:57)
[2019-01-01 06:09] LABS: #Eosinphils 0.2 thou/uL (0.0-0.7); #Monocytes 0.9 thou/uL (0.11-0.59); %Basophils 0.3 % (0.0-1.0); %Eosinophils 1.9 % (0.0-10.0); %Lymphocytes 19.8 % (21.0-51.0); %Monocytes 8.6 % (0.0-10.0); %Neutrophils 69.3 % (42.0-75.0); Hemoglobin 11.5 g/dL (14.0-18.0); Mean Corpuscular HGB CONC 34.2 g/dL (32.0-36.0); Mean Corpuscular Volume 90.7 fL (78.0-98.0); Mean Platelet Volume 8.9 fL (7.4-10.4); Platelet Count 146 thou/uL (130-400); RBC Distribution Width 12.6 % (11.5-14.5); White Blood Cell (WBC) Count 10.1 thou/uL (4.8-10.8)
[2019-01-01 06:11] LABS: Hemoglobin A1c 9.3 % (4.0-6.0)
[2019-01-01] MEDS: HumaLOG 300 UNITS/3 ML VIAL SC PRN ×2 (06:11→11:50)
[2019-01-01 06:34] LABS: Anion Gap 11 mmol/L (10-20); BUN (Urea Nitrogen) 18 mg/dL (8.4-25.7); Calc. Creatinine Clearance 98 mL/min (70-130); Calcium 8.7 mg/dL (7.8-10.44); Carbon Dioxide 23 mmol/L (23-31); Chloride 104 mmol/L (98-107); Estimated GFR-MDRD 80; Glucose 200 mg/dL (80-115); Sodium 134 mmol/L (136-145)
[2019-01-01] MEDS: Senokot S 8.6-50 MG TAB PO SCH (07:55)
[2019-01-01 07:56] VITALS: TEMP 98.6
[2019-01-01] MEDS: Aspirin 81 mg Enteric Coated Tablet PO SCH (07:56)
[2019-01-01] MEDS: Multivitamin W/ Minerals 1 TAB PO SCH (07:56)
[2019-01-01] MEDS: Ferrous Gluconate 324 MG TAB PO SCH (07:56)
[2019-01-01] MEDS: HYDROcodone/Acetaminophen 10/325 mg Tablet PO PRN (08:57)
[2019-01-01 11:53] VITALS: BP 163/76
--- NOTE | 2019-01-01 15:16 | PDOC.PN ---
- Subjective Encounter Start Date: 01/01/19 Encounter Start Time: 15:14 Subjective: feels well. no no complaints -: discussed high HbA1c and diabetes control w pt & -: pt very non compliant w meds and glucose checks - Objective MAR Reviewed: Yes Vital Signs & Weight: Vital Signs (12 hours) Temp Pulse Resp BP BP Pulse Ox 01/01/19 11:52 98.6 F 66 18 163/76 H 94 L 01/01/19 07:58 94 L 01/01/19 07:55 98.6 F 55 L 18 142/60 H 94 L 01/01/19 04:27 98.7 F 59 L 16 123/65 94 L Weight Admit Weight 200 lb Weight 200 lb I&O: 12/31/18 01/01/19 01/02/19 06:59 06:59 06:59 Intake Total 2880 1167 367 Output Total 1700 1200 Balance 1180 -33 367 Result Diagrams: 01/01/19 04:34 01/01/19 04:34 Additional Labs: Accuchecks 01/01/19 01/01/19 12/31/18 11:40 06:02 21:14 POC Glucose 211 H 200 H 176 H 12/31/18 15:07 POC Glucose 199 H Laboratory Tests 01/01/19 04:34 Hemoglobin A1c 9.3 H Phys Exam - Physical Examination Constitutional: NAD HEENT: PERRLA, moist MMs, sclera anicteric, oral pharynx no lesions Neck: no nodes, no JVD, supple, full ROM Respiratory: no wheezing, no rales, no rhonchi, clear to auscultation bilateral Cardiovascular: RRR, no significant murmur, no rub Gastrointestinal: soft, non-tender, no distention, positive bowel sounds Musculoskeletal: no edema, pulses present Neurological: non-focal, normal sensation, moves all 4 limbs Psychiatric: normal affect, A&O x 3 Dx/Plan (1) DM2 (diabetes mellitus, type 2) Status: Chronic Qualifiers: Diabetes mellitus prison insulin use: without prison use Comment: will start metformin. very high HbA1c Uncontrolled (2) BPH (benign prostatic hyperplasia) Code(s): N40.0 - BENIGN PROSTATIC HYPERPLASIA WITHOUT LOWER URINRY TRACT SYMP Status: Chronic (3) HLD (hyperlipidemia) Code(s): E78.5 - HYPERLIPIDEMIA, UNSPECIFIED Status: Chronic (4) S/P total knee arthroplasty Code(s): Z96.659 - PRESENCE OF UNSPECIFIED ARTIFICIAL KNEE JOINT Status: Acute Qualifiers: Laterality: left Qualified Code(s): Z96.652 - Presence of left artificial knee joint - Plan DVT proph w/SCDs diabetic education provided.pt counselled extensively about the need for BS -: control and med complaince -: take metformin for 3 months w repeat Hba1c & PCP f/u -: if still high in 3 mo,will need additional Insulin -: diabetic diet.HD stable otherwise & can be DCed home * . Review of Systems - Review of Systems Constitutional: negative: fever, chills, sweats, weakness, malaise, other ENT: negative: Ear Pain, Ear Discharge, Nose Pain, Nose Discharge, Nose Congestion, Mouth Pain, Mouth Swelling, Throat Pain, Throat Swelling, Other Respiratory: negative: Cough, Dry, Shortness of Breath, Hemoptysis, SOB with Excertion, Pleuritic Pain, Sputum, Wheezing Cardiovascular: negative: chest pain, palpitations, orthopnea, paroxysmal nocturnal dyspnea, edema, light headedness, other Gastrointestinal: negative: Nausea, Vomiting, Abdominal Pain, Diarrhea, Constipation, Melena, Hematochezia, Other Genitourinary: negative: Dysuria, Frequency, Incontinence, Hematuria, Retention , Other Musculoskeletal: negative: Neck Pain, Shoulder Pain, Arm Pain, Back Pain, Hand Pain, Leg Pain, Foot Pain, Other Skin: negative: Rash, Lesions, [place], Bruising, Other Neurological: negative: Weakness, Numbness, Incoordination, Change in Speech, Confusion, Seizures, Other - Medications/Allergies Allergies/Adverse Reactions: Allergies Allergy/AdvReac Type Severity Reaction Status Date / Time Penicillins Allergy Unknown Verified 12/26/18 12:17
== END 2019-01-01 14:13 | disposition home or self-care (01) ==
LOC: SDC 05:34 → INTOOBSV 07:00 → UNDOADMOB 07:00 → SJJU 07:00 → SDC 01-01 14:13 → UNDODISOB 01-01 14:13
PROVIDERS: ATTEND Orthopaedic Surgery
PROC: 3E0T3BZ Introduction of Anesthetic Agent into Peripheral Nerves and Plexi, Percutaneous Approach (ICD-10-PCS; principal; 2018-12-30)
PROC: 0SRD0J9 Replacement of Left Knee Joint with Synthetic Substitute, Cemented, Open Approach (ICD-10-PCS; principal; 2018-12-30)
PROC: 8E0YXBZ Computer Assisted Procedure of Lower Extremity (ICD-10-PCS; principal; 2018-12-30)
DX: M17.0 Bilateral primary osteoarthritis of knee (principal); G89.18 Other acute postprocedural pain; D64.9 Anemia, unspecified; E78.5 Hyperlipidemia, unspecified; I10 Essential (primary) hypertension; E11.9 Type 2 diabetes mellitus without complications; N40.0 Benign prostatic hyperplasia without lower urinary tract symptoms; Z79.1 Long term (current) use of non-steroidal anti-inflammatories (NSAID); Z79.84 Long term (current) use of oral hypoglycemic drugs; Z79.899 Other long term (current) drug therapy; Z88.0 Allergy status to penicillin
CPT/HCPCS: 36415; 36416; 80048; 83036; 85025; 85027; 86850; 86900; 86901; 90471; 90670; C1713; C1776; G0009; J1885; J1956; J2001; J2250; J2405; J2704; J2795; J3010; J3370; J3490; J7050

== ENCOUNTER 2021-02-07 17:44 | Emergency (ER) | payer BC, MEDICARE ==
[2021-02-07] MEDS ORDERED: HYDROcodone/Acetaminophen 5/325 mg Tablet ONE (20:42)
== END 2021-02-07 21:49 | disposition home or self-care (01) ==
LOC: ERS 17:44
DX: S72.435A Nondisplaced fracture of medial condyle of left femur, initial encounter for closed fracture (principal); E11.9 Type 2 diabetes mellitus without complications; E78.5 Hyperlipidemia, unspecified; E78.00 Pure hypercholesterolemia, unspecified; I10 Essential (primary) hypertension; W17.2XXA Fall into hole, initial encounter

== ENCOUNTER 2021-08-05 14:10 | Inpatient (IN) | payer BC, MEDICARE ==
[2021-08-05 14:55] LABS: #Basophils 0.1 thou/uL (0.0-0.2); #Eosinphils 0.2 thou/uL (0.0-0.7); #Lymphocytes 2.8 thou/uL (1.20-3.40); #Monocytes 0.9 thou/uL (0.11-0.59); #Neutrophils 5.2 thou/uL (1.40-6.50); %Basophils 0.7 % (0.0-1.0); %Eosinophils 1.8 % (0.0-10.0); %Monocytes 9.6 % (0.0-10.0); Hemoglobin 12.8 g/dL (14.0-18.0); Mean Corpuscular HGB CONC 33.5 g/dL (32.0-36.0); Mean Corpuscular Hemoglobin 30.9 pg (27.0-31.0); Mean Corpuscular Volume 92.2 fL (78.0-98.0); Mean Platelet Volume 7.2 fL (7.4-10.4); Platelet Count 375 thou/uL (130-400); RBC Distribution Width 12.5 % (11.5-14.5); Red Blood Cell (RBC) Count 4.14 mill/uL (4.70-6.10); White Blood Cell (WBC) Count 9.1 thou/uL (4.8-10.8)
[2021-08-05 15:08] LABS: INR-International Normal Ratio 1.1; Prothrombin Time 14.2 sec (12.0-14.7)
[2021-08-05 15:09] LABS: PTT 30.3 sec (22.9-36.1)
[2021-08-05] MEDS ORDERED: Aspirin Chewable 81 MG TAB ONE (15:18)
[2021-08-05 15:22] LABS: ALT (SGPT) 30 U/L (8-55); AST (SGOT) 20 U/L (5-34); Albumin 3.6 g/dL (3.4-4.8); Alkaline Phosphatase 96 U/L (40-110); Anion Gap 11 mmol/L (10-20); BUN (Urea Nitrogen) 14 mg/dL (8.4-25.7); Bilirubin, Total 0.3 mg/dL (0.2-1.2); Calc. Creatinine Clearance 0 mL/min (70-130); Calcium 8.7 mg/dL (7.8-10.44); Carbon Dioxide 25 mmol/L (23-31); Chloride 104 mmol/L (98-107); Glucose 138 mg/dL (80-115); Potassium 4.4 mmol/L (3.5-5.1); Protein, Total 7.6 g/dL (5.8-8.1); Sodium 136 mmol/L (136-145)
[2021-08-05 16:27] VITALS: BMI 27.7
[2021-08-05 18:41] LABS: Troponin I Less than 0.010 ng/mL (< 0.028)
[2021-08-05] MEDS ORDERED: Dextrose 5% in Water 1,000 ML IV PRN (19:58)
[2021-08-05] MEDS ORDERED: Acetaminophen 500 MG TAB PO PRN (19:58)
[2021-08-05] MEDS ORDERED: hydrALAZINE 20 MG/ML VIAL SLOW IVP PRN (19:58)
[2021-08-05] MEDS ORDERED: Dextrose 50% Abboject 50 ML SYRINGE SLOW IVP PRN (19:58)
[2021-08-05] MEDS ORDERED: Ondansetron PF 4 MG/2 ML Vial IVP PRN (19:58)
[2021-08-05] MEDS ORDERED: HumaLOG 300 UNITS/3 ML VIAL SC PRN ×2 (19:58)
[2021-08-05] MEDS ORDERED: Ondansetron ODT 4 MG TAB PO PRN (19:58)
[2021-08-05] MEDS ORDERED: Atorvastatin Calcium 40 MG TAB PO SCH (21:00)
[2021-08-05 21:48] LABS: Troponin I 0.011 ng/mL (< 0.028)
[2021-08-06 05:11] LABS: #Eosinphils 0.2 thou/uL (0.0-0.7); #Lymphocytes 2.8 thou/uL (1.20-3.40); #Monocytes 0.7 thou/uL (0.11-0.59); #Neutrophils 3.5 thou/uL (1.40-6.50); %Basophils 0.2 % (0.0-1.0); %Eosinophils 2.4 % (0.0-10.0); %Lymphocytes 39.5 % (21.0-51.0); %Monocytes 9.5 % (0.0-10.0); %Neutrophils 48.5 % (42.0-75.0); Hemoglobin 11.6 g/dL (14.0-18.0); Mean Corpuscular HGB CONC 33.5 g/dL (32.0-36.0); Mean Corpuscular Hemoglobin 30.9 pg (27.0-31.0); Mean Corpuscular Volume 92.3 fL (78.0-98.0); Mean Platelet Volume 7.1 fL (7.4-10.4); Platelet Count 333 thou/uL (130-400); RBC Distribution Width 12.6 % (11.5-14.5); Red Blood Cell (RBC) Count 3.75 mill/uL (4.70-6.10); White Blood Cell (WBC) Count 7.2 thou/uL (4.8-10.8)
[2021-08-06 05:40] LABS: Hemoglobin A1c 7.5 % (4.0-6.0)
[2021-08-06 05:43] LABS: Anion Gap 11 mmol/L (10-20); BUN (Urea Nitrogen) 15 mg/dL (8.4-25.7); Calc. Creatinine Clearance 58 mL/min (70-130); Calcium 8.3 mg/dL (7.8-10.44); Carbon Dioxide 23 mmol/L (23-31); Chloride 106 mmol/L (98-107); Cholesterol 115 mg/dl (< 200 Desired); Glucose 122 mg/dL (80-115); HDL Cholesterol 23 mg/dL (>60 Neg Risk); LDL Cholesterol, Calculated 51 mg/dL; Potassium 4.2 mmol/L (3.5-5.1); Sodium 136 mmol/L (136-145); Triglycerides 206 mg/dL (Less than 150)
[2021-08-06] MEDS ORDERED: Famotidine 20 MG TAB PO SCH (09:00)
[2021-08-06] MEDS ORDERED: Aspirin 81 mg Enteric Coated Tablet PO SCH (09:00)
[2021-08-06 16:16] VITALS: BP 139/77; TEMP 97.9
[2021-08-06 19:35] LABS: SARS-CoV-2 PCR by NAA Not Detected (NotDetected)
== END 2021-08-06 17:40 | disposition home or self-care (01) | DRG 65 ==
LOC: ERS 14:10 → ERHOLD 16:05 → NEURO 19:19 → OBSVTOIN 19:58
PROVIDERS: ADMIT Family Medicine; ATTEND Family Medicine
DX: I63.539 Cerebral infarction due to unspecified occlusion or stenosis of unspecified posterior cerebral artery (principal); N17.9 Acute kidney failure, unspecified; Z20.822 Contact with and (suspected) exposure to COVID-19; R29.703 NIHSS score 3; I63.531 Cerebral infarction due to unspecified occlusion or stenosis of right posterior cerebral artery; H53.9 Unspecified visual disturbance; R20.2 Paresthesia of skin; M19.90 Unspecified osteoarthritis, unspecified site; E11.9 Type 2 diabetes mellitus without complications; E78.5 Hyperlipidemia, unspecified; E78.00 Pure hypercholesterolemia, unspecified; I10 Essential (primary) hypertension; Z79.82 Long term (current) use of aspirin; Z79.899 Other long term (current) drug therapy; Z90.49 Acquired absence of other specified parts of digestive tract; Z88.0 Allergy status to penicillin; Z82.49 Family history of ischemic heart disease and other diseases of the circulatory system
CPT/HCPCS: 36415; 36416; 70450; 70551; 80048; 80053; 80061; 83036; 84484; 85025; 85610; 85730; 93005; 93306; 93880; G0378; J1815; U0003; U0005